=== PATIENT | male | born 1960 | race African-American/Black ===

== ENCOUNTER 2017-03-15 13:16 | Emergency (ER) | payer SELFPAY ==
[~2017-03-15] VITALS: Ht 175.3 cm; Wt 88.5 kg
[~2017-03-15 13:16] MED LIST: HYDR-2768 PO; HYDR50TA15 PO; LISI-363 PO; METO50TA PO; NORV10TA PO
[2017-03-15 13:17] VITALS: BP 146/70; PULSE 66; RESP 14; TEMP 98.4; O2SAT 98
--- NOTE | 2017-03-15 13:42 | PD ---
HPI Chief Complaint: Edema Time Seen by Provider: 13:34 Travel History International Travel<30 days: No Contact w/Intl Traveler<30days: No Traveled to known affect area: No History of Present Illness HPI 2 DAY H/O SWELLING TO HIS ANKLES AND LEGS SIMEON, NO SOB, NO CP, STATED SPENDS A LOT OF TIME ON HIS FEET PFSH Past Medical History Diminished Hearing: No Hypertension: Yes Past Surgical History Eye Surgery: Yes (BILAT EYES) Pacemaker: No Social History Alcohol Use: No Tobacco Use: No Substance Use: No Allergies-Medications (Allergen,Severity, Reaction): Coded Allergies: shrimp (Unverified Allergy, Severe, Swelling, 03/15/17) lips and tongue swell Reported Meds & Prescriptions Reported Meds & Active Scripts Active Potassium Chloride Microencaps 20 Meq Tab 20 Meq PO Q12HR Norvasc (Amlodipine Besylate) 10 Mg Tab 10 Mg PO DAILY Hydralazine HCl 50 Mg Tab 50 Mg PO TID Reported Lisinopril 40 Mg Tab 40 Mg PO HS Review of Systems Except as stated in HPI: all other systems reviewed are Neg Cardiovascular: Positive: Edema (BLE) Physical Exam Narrative GENERAL: SKIN: Warm and dry. HEAD: Atraumatic. Normocephalic. EYES: Pupils equal and round. No scleral icterus. No injection or drainage. ENT: No nasal bleeding or discharge. Mucous membranes pink and moist. NECK: Trachea midline. No JVD. CARDIOVASCULAR: Regular rate and rhythm. RESPIRATORY: No accessory muscle use. Clear to auscultation. Breath sounds equal bilaterally. GASTROINTESTINAL: Abdomen soft, non-tender, nondistended. MUSCULOSKELETAL: Extremities without clubbing, cyanosis, or PITTING BLE 2+ edema. No obvious deformities. NEUROLOGICAL: Awake and alert. No obvious cranial nerve deficits. Motor grossly within normal limits. Five out of 5 muscle strength in the arms and legs. Normal speech. PSYCHIATRIC: Appropriate mood and affect; insight and judgment normal. Data Data Last Documented VS Vital Signs Date Time Temp Pulse Resp B/P (MAP) Pulse Ox O2 Delivery O2 Flow Rate FiO2 03/15/17 13:17 98.4 66 14 146/70 (95) 98 Orders Orders Complete Blood Count With Diff (03/15/17 13:36) Comprehensive Metabolic Panel (03/15/17 13:36) B-Type Natriuretic Peptide (03/15/17 13:36) Thyroid Stimulating Hormone (03/15/17 13:36) Chest, Single Ap (03/15/17 13:36) Potassium Chloride (Kcl) (03/15/17 15:00) Labs Laboratory Tests Test 03/15/17 13:45 White Blood Count 2.7 TH/MM3 Red Blood Count 4.38 MIL/MM3 Hemoglobin 11.3 GM/DL Hematocrit 34.8 % Mean Corpuscular Volume 79.5 FL Mean Corpuscular Hemoglobin 25.8 PG Mean Corpuscular Hemoglobin Concent 32.5 % Red Cell Distribution Width 13.2 % Platelet Count 138 TH/MM3 Mean Platelet Volume 9.9 FL Neutrophils (%) (Auto) 39.2 % Lymphocytes (%) (Auto) 35.9 % Monocytes (%) (Auto) 21.4 % Eosinophils (%) (Auto) 2.5 % Basophils (%) (Auto) 1.0 % Neutrophils # (Auto) 1.1 TH/MM3 Lymphocytes # (Auto) 1.0 TH/MM3 Monocytes # (Auto) 0.6 TH/MM3 Eosinophils # (Auto) 0.1 TH/MM3 Basophils # (Auto) 0.0 TH/MM3 CBC Comment DIFF FINAL Differential Comment Blood Urea Nitrogen 9 MG/DL Creatinine 0.98 MG/DL Random Glucose 104 MG/DL Total Protein 7.0 GM/DL Albumin 3.8 GM/DL Calcium Level 8.0 MG/DL Alkaline Phosphatase 62 U/L Aspartate Amino Transf (AST/SGOT) 16 U/L Alanine Aminotransferase (ALT/SGPT) 27 U/L Total Bilirubin 1.5 MG/DL Sodium Level 141 MEQ/L Potassium Level 2.8 MEQ/L Chloride Level 105 MEQ/L Carbon Dioxide Level 27.8 MEQ/L Anion Gap 8 MEQ/L Estimat Glomerular Filtration Rate 97 ML/MIN B-Type Natriuretic Peptide 36 PG/ML Thyroid Stimulating Hormone 3rd Gen 1.780 uIU/ML MDM Medical Decision Making Medical Screen Exam Complete: Yes Emergency Medical Condition: Yes Medical Record Reviewed: Yes Differential Diagnosis LIVER FAILURE V KIDNEY FAILURE V CHF Narrative Course PATIENT STATES HE HAS HAD ULTRASOUND TO R/O DVT RECENTLY BUT UNABLE TO CONFIRM DUE TO DOWN TIME BUT WILL ACCEPT PATIENT'S WORD. Diagnosis Primary Impression: BILATERAL PERIPHERAL EDEMA Additional Impression: Hypokalemia Patient Instructions: General Instructions, Leg Edema (ED) Additional Instructions: advised to wear compression stockings and to take potassium supplement prescription given. Scripts Potassium Chloride Microencaps (Potassium Chloride Microencaps) 20 Meq Tab 20 MEQ PO Q12HR for Electrolyte Replacement, #20 TAB 0 Refills Prov: Tyrell Burns MD 03/15/17 Disposition: 01 DISCHARGE HOME Condition: Stable Tyrell Burns MD Mar 15, 2017 13:42
[2017-03-15] MEDS ORDERED: LISI40TA PO (13:52)
[2017-03-15 14:04] LABS: AUTOMATED NEUTROPHIL # 1.1 TH/MM3 (1.8-7.7); EOSINOPHIL # 0.1 TH/MM3 (0-0.4); EOSINOPHIL % 2.5 % (0.0-4.0); HEMATOCRIT 34.8 % (39.0-51.0); HEMO FLAGS DIFF FINAL; LYMPH % 35.9 % (9.0-44.0); MEAN CELL VOLUME 79.5 FL (80.0-100.0); MEAN CORPUSCULAR HEMOGLOBIN 25.8 PG (27.0-34.0); MEAN CORPUSCULAR HGB CONC 32.5 % (32.0-36.0); MONO % 21.4 % (0.0-8.0); NEUT % 39.2 % (16.0-70.0); PLATELET COUNT 138 TH/MM3 (150-450); RED BLOOD COUNT 4.38 MIL/MM3 (4.50-5.90); RED CELL DISTRIBUTION WIDTH 13.2 % (11.6-17.2); WHITE BLOOD COUNT 2.7 TH/MM3 (4.0-11.0)
--- NOTE | 2017-03-15 14:14 | RADRPT ---
EXAM DATE/TIME: 03/15/2017 14:00 [facility] COMPARISON: CHEST SINGLE AP, June 05, 2013, 13:43. INDICATIONS : Bilateral lower extremity swelling. MEDICAL HISTORY : None. SURGICAL HISTORY : None. ENCOUNTER: Initial ACUITY: 1 day PAIN SCORE: 0/10 LOCATION: Bilateral lower extremity swelling FINDINGS: A single view of the chest demonstrates the lungs to be symmetrically aerated without evidence of mas s, infiltrate or effusion. The cardiomediastinal contours are unremarkable. Osseous structures are intact. CONCLUSION: No acute disease. Yrn Christopher MD on March 15, 2017 at 14:12 Board Certified Radiologist. This report was verified electronically.
[2017-03-15 14:30] LABS: ALKALINE PHOSPHATASE 62 U/L (45-117); ALT (GPT) 27 U/L (12-78); ANION GAP 8 MEQ/L (5-15); AST (GOT) 16 U/L (15-37); BICARBONATE 27.8 MEQ/L (21.0-32.0); BLOOD UREA NITROGEN 9 MG/DL (7-18); CHLORIDE 105 MEQ/L (98-107); GLOMERULAR FILTRATION RATE 97 ML/MIN (>89); SODIUM (NA) 141 MEQ/L (136-145); TOTAL BILIRUBIN ADULT 1.5 MG/DL (0.2-1.0)
[2017-03-15 14:32] LABS: POTASSIUM 2.8 MEQ/L (3.5-5.1)
[2017-03-15] MEDS ORDERED: POTA20TA5 PO (14:59)
[2017-03-15] MEDS ORDERED: POTASSIUM CHLORIDE 10 MEQ CONTROLLED RELEASE TAB PO ONE (15:00)
== END 2017-03-15 16:33 | disposition home or self-care (01) ==
LOC: NEPD 13:16
DX: R60.0 Localized edema (principal); E87.6 Hypokalemia; I10 Essential (primary) hypertension
CPT/HCPCS: 71010; 80053; 83880; 84443; 85025; 99284

== ENCOUNTER 2017-12-14 11:32 | Emergency (ER) | payer SELFPAY ==
[~2017-12-14] VITALS: Ht 175.3 cm; Wt 90.0 kg
[~2017-12-14 11:32] MED LIST changes: -HYDR-2768 PO; -LISI-363 PO; +LISI40TA PO; -METO50TA PO; +POTA20TA5 PO
[2017-12-14 12:03] VITALS: BP 143/74; PULSE 50; RESP 20; TEMP 98.1; O2SAT 97
[2017-12-14] MEDS ORDERED: HYDR-3801 PO (12:17)
[2017-12-14] MEDS ORDERED: AMLO10TA2 PO (12:17)
--- NOTE | 2017-12-14 12:19 | PD ---
HPI Chief Complaint: Pain: Acute or Chronic Time Seen by Provider: 12:10 Travel History International Travel<30 days: No Contact w/Intl Traveler<30days: No Traveled to known affect area: No History of Present Illness HPI 57-year-old male presents to the emergency department for evaluation of bilateral lower extremity edema for approximately 1 week. He states his bilateral ankles, bilateral calves, as well as his right knee are swollen. He denies any injury. He states he has had ankle swelling in the past, but not this severe. He denies any fevers or chills. No chest pain or shortness of breath. No abdominal pain. Nausea, vomiting, diarrhea. Reports history of hypertension. He denies any alcohol, illicit drug use, tobacco use. Denies any history DVT. He denies any pain. However, palpation, he does report minimal pain, 1-2 out of 10, aching to the posterior calves. He denies any other symptoms or complaints. He does state that he is on his feet for 11 hours a day at work which will worsen his symptoms. He states they will mildly improved with elevation. Moderate severity. PFSH Past Medical History Diminished Hearing: No Hypertension: Yes Past Surgical History Eye Surgery: Yes (BILAT EYES) Pacemaker: No Social History Alcohol Use: No Tobacco Use: No Substance Use: No Allergies-Medications (Allergen,Severity, Reaction): Coded Allergies: shrimp (Unverified Allergy, Severe, Swelling, 12/14/17) lips and tongue swell Reported Meds & Prescriptions Reported Meds & Active Scripts Active Reported Hydralazine (Hydralazine HCl) 100 Mg Tab Unknown Dose PO BID Take with meals Amlodipine (Amlodipine Besylate) 10 Mg Tab 10 Mg PO DAILY Lisinopril 40 Mg Tab 40 Mg PO HS Review of Systems Except as stated in HPI: all other systems reviewed are Neg Physical Exam Narrative GENERAL: Well-nourished, well-developed male patient, afebrile. SKIN: Focused skin assessment warm/dry. No erythema or warmth to bilateral lower legs. HEAD: Normocephalic. Atraumatic. EYES: No scleral icterus. No injection or drainage. NECK: Supple, trachea midline. No JVD or lymphadenopathy. CARDIOVASCULAR: Regular rate and rhythm without murmurs, gallops, or rubs. Bilateral radial and pedal pulses are 2+. RESPIRATORY: Breath sounds equal bilaterally. No accessory muscle use. Lung sounds are clear to auscultation. GASTROINTESTINAL: Abdomen soft, non-tender, nondistended. MUSCULOSKELETAL: No cyanosis. 2-3+ bilateral lower extremity edema. He does have some tenderness to palpation to the posterior calves. BACK: Nontender without obvious deformity. No CVA tenderness. Data Data Last Documented VS Vital Signs Date Time Temp Pulse Resp B/P (MAP) Pulse Ox O2 Delivery O2 Flow Rate FiO2 12/14/17 12:03 98.1 50 20 143/74 (97) 97 Orders Orders Complete Blood Count With Diff (12/14/17 12:14) Comprehensive Metabolic Panel (12/14/17 12:14) B-Type Natriuretic Peptide (12/14/17 12:14) Act Partial Throm Time (Ptt) (12/14/17 12:14) Prothrombin Time / Inr (Pt) (12/14/17 12:14) Iv Access Insert/Monitor (12/14/17 12:14) Us Leg Venous Doppler Bilat (12/14/17 ) Furosemide Inj (Lasix Inj) (12/14/17 14:30) Labs Laboratory Tests Test 12/14/17 12:52 White Blood Count 3.6 TH/MM3 Red Blood Count 5.23 MIL/MM3 Hemoglobin 13.5 GM/DL Hematocrit 41.5 % Mean Corpuscular Volume 79.4 FL Mean Corpuscular Hemoglobin 25.7 PG Mean Corpuscular Hemoglobin Concent 32.4 % Red Cell Distribution Width 13.2 % Platelet Count 146 TH/MM3 Mean Platelet Volume 9.1 FL Neutrophils (%) (Auto) 54.3 % Lymphocytes (%) (Auto) 29.9 % Monocytes (%) (Auto) 10.8 % Eosinophils (%) (Auto) 4.0 % Basophils (%) (Auto) 1.0 % Neutrophils # (Auto) 2.0 TH/MM3 Lymphocytes # (Auto) 1.1 TH/MM3 Monocytes # (Auto) 0.4 TH/MM3 Eosinophils # (Auto) 0.1 TH/MM3 Basophils # (Auto) 0.0 TH/MM3 CBC Comment DIFF FINAL Differential Comment Prothrombin Time 16.4 SEC Prothromb Time International Ratio 1.6 RATIO Activated Partial Thromboplast Time 26.2 SEC Blood Urea Nitrogen 12 MG/DL Creatinine 1.00 MG/DL Random Glucose 91 MG/DL Total Protein 7.9 GM/DL Albumin 4.0 GM/DL Calcium Level 8.6 MG/DL Alkaline Phosphatase 80 U/L Aspartate Amino Transf (AST/SGOT) 28 U/L Alanine Aminotransferase (ALT/SGPT) 27 U/L Total Bilirubin 1.1 MG/DL Sodium Level 141 MEQ/L Potassium Level 3.8 MEQ/L Chloride Level 105 MEQ/L Carbon Dioxide Level 27.2 MEQ/L Anion Gap 9 MEQ/L Estimat Glomerular Filtration Rate 94 ML/MIN B-Type Natriuretic Peptide 32 PG/ML MDM Medical Decision Making Medical Screen Exam Complete: Yes Emergency Medical Condition: Yes Medical Record Reviewed: Yes Interpretation(s) Last Impressions Lower Extremity Ultrasound 12/14/17 0000 Signed Impressions: Service Date/Time: Thursday, December 14, 2017 12:25 - CONCLUSION: Normal examination. Tripp Hyde MD Differential Diagnosis Edema versus CHF versus DVT versus electrolyte abnormality Narrative Course 57-year-old male presents to the emergency department for evaluation of bilateral lower extremity edema. He denies any other symptoms or complaints. IV access established. CBC, CMP, BNP, PTT, PT/INR ordered and pending. Venous Doppler ultrasound of bilateral lower extremities is ordered and pending. CBC shows slight leukopenia of 3.6. CMP shows no acute abnormality. BNP is 32. Coags show no acute abnormality. US is normal. Laboratory findings and imaging are reassuring. I discussed with my attending physician, Dr. Parnell, who agrees with plan and disposition. Patient is given Lasix 40 mg IV for edema. He is instructed to follow-up with his primary care physician, Dr. Hermosillo. He is return here for any acute worsening of symptoms. The patient was discharged in stable condition with instructions, including return instructions and follow up instructions. Diagnosis Primary Impression: Bilateral lower extremity edema Referrals: Primary Care Physician call for appointment Patient Instructions: General Instructions, Leg Edema (ED) Additional Instructions: Elevate your bilateral lower extremities. Wear compression stockings. Follow-up with a primary care physician. Return to the emergency department for any acute worsening of symptoms. Med/Other Pt SpecificInfo: No Change to Meds Disposition: 01 DISCHARGE HOME Condition: Stable Alexandrea Hogue YEN December 14, 2017 12:19
[2017-12-14 13:04] LABS: EOSINOPHIL # 0.1 TH/MM3 (0-0.4); HEMATOCRIT 41.5 % (39.0-51.0); HEMOGLOBIN 13.5 GM/DL (13.0-17.0); LYMPH % 29.9 % (9.0-44.0); LYMPHOCYTE # 1.1 TH/MM3 (1.0-4.8); MEAN CELL VOLUME 79.4 FL (80.0-100.0); MEAN CORPUSCULAR HEMOGLOBIN 25.7 PG (27.0-34.0); MEAN CORPUSCULAR HGB CONC 32.4 % (32.0-36.0); MEAN PLATELET VOLUME 9.1 FL (7.0-11.0); MONO % 10.8 % (0.0-8.0); MONOCYTE # 0.4 TH/MM3 (0-0.9); NEUT % 54.3 % (16.0-70.0); PLATELET COUNT 146 TH/MM3 (150-450); RED BLOOD COUNT 5.23 MIL/MM3 (4.50-5.90); RED CELL DISTRIBUTION WIDTH 13.2 % (11.6-17.2); WHITE BLOOD COUNT 3.6 TH/MM3 (4.0-11.0)
[2017-12-14 13:15] LABS: INTERNATIONAL NORMALIZED RATIO 1.6 RATIO; PROTHROMBIN TIME - PATIENT 16.4 SEC (9.8-11.6)
[2017-12-14 13:30] LABS: ALKALINE PHOSPHATASE 80 U/L (45-117); ALT (GPT) 27 U/L (12-78); AST (GOT) 28 U/L (15-37); BICARBONATE 27.2 MEQ/L (21.0-32.0); BLOOD UREA NITROGEN 12 MG/DL (7-18); CALCIUM 8.6 MG/DL (8.5-10.1); CHLORIDE 105 MEQ/L (98-107); GLOMERULAR FILTRATION RATE 94 ML/MIN (>89); GLUCOSE,RANDOM 91 MG/DL (74-106); SODIUM (NA) 141 MEQ/L (136-145); TOTAL BILIRUBIN ADULT 1.1 MG/DL (0.2-1.0); TOTAL PROTEIN 7.9 GM/DL (6.4-8.2)
--- NOTE | 2017-12-14 14:10 | RADRPT ---
EXAM DATE/TIME: 12/14/2017 12:25 [facility] COMPARISON: No previous studies available for comparison. INDICATIONS : Bilateral leg swelling. MEDICAL HISTORY : Hypertension. SURGICAL HISTORY : Right knee surgery. Right ankle surgery. ENCOUNTER: Initial ACUITY: 1 week PAIN SCORE: 0/10 LOCATION: Bilateral legs. TECHNIQUE: Venous ultrasound of the left and right leg was performed from the inguinal ligament to the proximal calf. Real-time, color Doppler and spectral tracing, compression and augmentation techniques were us ed. FINDINGS: RIGHT LEG: There is normal compressibility of the deep venous system from the inguinal region to the proximal ca lf. No echogenic clot is seen in the lumen of the common femoral, femoral, popliteal, and posterior tibial veins. There is a normal response of the venous system to proximal and distal augmentation an d respiration. LEFT LEG: There is normal compressibility of the deep venous system from the inguinal region to the proximal ca lf. No echogenic clot is seen in the lumen of the common femoral, femoral, popliteal, and posterior tibial veins. There is a normal response of the venous system to proximal and distal augmentation an d respiration. CONCLUSION: Normal examination. Tripp Hyde MD on December 14, 2017 at 14:08 Board Certified Radiologist. This report was verified electronically.
--- NOTE | 2017-12-14 14:29 | PD ---
Data Data Last Documented VS Vital Signs Date Time Temp Pulse Resp B/P (MAP) Pulse Ox O2 Delivery O2 Flow Rate FiO2 12/14/17 12:03 98.1 50 20 143/74 (97) 97 Orders Orders Complete Blood Count With Diff (12/14/17 12:14) Comprehensive Metabolic Panel (12/14/17 12:14) B-Type Natriuretic Peptide (12/14/17 12:14) Act Partial Throm Time (Ptt) (12/14/17 12:14) Prothrombin Time / Inr (Pt) (12/14/17 12:14) Iv Access Insert/Monitor (12/14/17 12:14) Us Leg Venous Doppler Bilat (12/14/17 ) Labs Laboratory Tests Test 12/14/17 12:52 White Blood Count 3.6 TH/MM3 Red Blood Count 5.23 MIL/MM3 Hemoglobin 13.5 GM/DL Hematocrit 41.5 % Mean Corpuscular Volume 79.4 FL Mean Corpuscular Hemoglobin 25.7 PG Mean Corpuscular Hemoglobin Concent 32.4 % Red Cell Distribution Width 13.2 % Platelet Count 146 TH/MM3 Mean Platelet Volume 9.1 FL Neutrophils (%) (Auto) 54.3 % Lymphocytes (%) (Auto) 29.9 % Monocytes (%) (Auto) 10.8 % Eosinophils (%) (Auto) 4.0 % Basophils (%) (Auto) 1.0 % Neutrophils # (Auto) 2.0 TH/MM3 Lymphocytes # (Auto) 1.1 TH/MM3 Monocytes # (Auto) 0.4 TH/MM3 Eosinophils # (Auto) 0.1 TH/MM3 Basophils # (Auto) 0.0 TH/MM3 CBC Comment DIFF FINAL Differential Comment Prothrombin Time 16.4 SEC Prothromb Time International Ratio 1.6 RATIO Activated Partial Thromboplast Time 26.2 SEC Blood Urea Nitrogen 12 MG/DL Creatinine 1.00 MG/DL Random Glucose 91 MG/DL Total Protein 7.9 GM/DL Albumin 4.0 GM/DL Calcium Level 8.6 MG/DL Alkaline Phosphatase 80 U/L Aspartate Amino Transf (AST/SGOT) 28 U/L Alanine Aminotransferase (ALT/SGPT) 27 U/L Total Bilirubin 1.1 MG/DL Sodium Level 141 MEQ/L Potassium Level 3.8 MEQ/L Chloride Level 105 MEQ/L Carbon Dioxide Level 27.2 MEQ/L Anion Gap 9 MEQ/L Estimat Glomerular Filtration Rate 94 ML/MIN B-Type Natriuretic Peptide 32 PG/ML MDM Supervised Visit with KAMI: Yes Narrative Course I, Dr. Parnell, have reviewed the advance practice practitioner's documentation and am in agreement, met with the patient face to face, made the diagnosis, and the medical decision making was done by me. *My assessment and Findings: I evaluated this patient. He does have moderate lower extremity edema which is symmetric. He has no DVT. Labs are reasonably normal. He stable for outpatient follow-up and will be given a single dose of Lasix here Maulik Parnell MD December 14, 2017 14:28
[2017-12-14] MEDS ORDERED: FUROSEMIDE 40 MG/4 ML VIAL IV PUSH ONE (14:30)
== END 2017-12-14 15:02 | disposition home or self-care (01) ==
LOC: NEPC 11:32
DX: R60.0 Localized edema (principal); I10 Essential (primary) hypertension
CPT/HCPCS: 80053; 83880; 85025; 85610; 85730; 93970; 96374; 99284; J1940